=== PATIENT | female | born 1990 | race Caucasian/White ===

== ENCOUNTER 2018-01-03 13:21 | Emergency (ER) | payer BC, OTHER ==
[~2018-01-03] VITALS: Ht 172.7 cm; Wt 122.5 kg
[2018-01-03 18:14] VITALS: BP 126/84
== END 2018-01-03 18:32 | disposition home or self-care (01) ==
LOC: ER 13:21
DX: S93.601A Unspecified sprain of right foot, initial encounter (principal); W01.0XXA Fall on same level from slipping, tripping and stumbling without subsequent striking against object, initial encounter; Y93.89 Activity, other specified; Y99.8 Other external cause status; Y92.89 Other specified places as the place of occurrence of the external cause
CPT/HCPCS: 73630